=== PATIENT | male | born 1970 | race Caucasian/White ===

== ENCOUNTER 2016-12-01 13:45 | Emergency (ER) | payer OTHER ==
[2016-12-01 13:57] VITALS: O2SAT 98
[2016-12-01] MEDS ORDERED: Phenergan 25 MG INJ IM ONE (14:38)
[2016-12-01] MEDS ORDERED: Hydromorphone 1 mg/ml Ampule IM ONE (14:38)
--- NOTE | 2016-12-01 14:45 | ERPHSYRPT ---
- History of Present Illness Time Seen by Provider: 12/01/16 14:00 Source: patient Exam Limitations: clinical condition Patient Subjective Stated Complaint: abscess for 3 days Triage Nursing Assessment: states has had an abscess to post neck for 3 days. no fever. yellow draiange. large redness noted to mid post neck with yellow drainage noted. approx 4 cm redness with elevated center. Physician History: PATIENT WITH A HISTORY OF HYPERTENSION, CHRONIC PAIN SYNDROME COMPLAINS OF PAINFUL SWELLING OVER THE BACK OF HIS NECK X 3 DAYS ASSOCIATED WITH PURULENT DRAINAGE. DENIES FEVER. STATES HE HAS NO RELIEF FROM OXYCONTIN 15MG 4 TIMES DAILY. Timing/Duration: day(s) Quality: painful Severity: severe Location: neck Possible Causes: no cause identified Modifying Factors: Improves With: scratching Associated Symptoms: swelling/mass/lumps, other (DRAINAGE) Allergies/Adverse Reactions: No Known Drug Allergies Allergy (Unverified 12/01/16 13:57) Home Medications: Lisinopril 40 mg PO DAILY 12/20/15 [History] Oxycodone HCl 15 mg PO Q4HPRN PRN 12/01/16 [History] Hx Tetanus, Diphtheria Vaccination/Date Given: Yes Hx Influenza Vaccination/Date Given: No Hx Pneumococcal Vaccination/Date Given: No Immunizations Up to Date: Yes - Review of Systems Constitutional: No Symptoms Respiratory: No Symptoms Cardiac: No Symptoms Skin: Other (PAINFUL SWELLLING) - Past Medical History Pertinent Past Medical History: Yes Cardiac History: Hypertension Other Medical History: mrsa - Past Surgical History Past Surgical History: Yes Musculoskeletal: Orthopedic Surgery - Social History Smoking Status: Never smoker Exposure to second hand smoke: No Drug Use: none Patient Lives Alone: No - Nursing Vital Signs Nursing Vital Signs: Initial Vital Signs Temperature 98.8 F Temperature Source Oral Pulse Rate 87 Respiratory Rate 18 Blood Pressure [Right Arm] 183/112 Pain Intensity 10 - Physical Exam General Appearance: no apparent distress, alert Neck Exam: supple, other (THERE IS A CIRCULAR FLUCTUANCT SWELLING MID POST CERVICAL AREA AT BASE OF HAIR LINE WITH PURULENT PUS DRAINAGE 4CM X 3CM SURROUNDING ERYTHEMA) Respiratory Exam: normal breath sounds, lungs clear, No respiratory distress Cardiovascular Exam: regular rate/rhythm, normal heart sounds Gastrointestinal/Abdomen Exam: soft, mass, No tenderness Back Exam: normal inspection, normal range of motion, No CVA tenderness, No vertebral tenderness Extremity Exam: normal inspection, normal range of motion Neurologic Exam: alert, oriented x 3, cooperative, normal mood/affect, sensation nml, No motor deficits Skin Exam: normal color, warm, dry SpO2 Interpretation: normal SpO2: 98 Oxygen Delivery: Room Air Procedures - Incision and Drainage Site: POST CERVICAL Anesthesia: 2% Lidocaine cc's of anesthesia: 2 Blade Size: 11 I & D Procedure: other (1/4 INCH STRIP GAUZE PACKING) Results: large amount pus Ordered Tests: Medication Summary Discontinued Medications Generic Name Dose Route Start Last Admin Trade Name Elioq PRN Reason Stop Dose Admin Hydromorphone HCl 1 mg 12/01/16 14:38 Hydromorphone 1 Mg/Ml Ampule IM 12/01/16 14:39 STAT ONE Promethazine HCl 25 mg 12/01/16 14:38 Phenergan 25 Mg Inj IM 12/01/16 14:39 STAT ONE - Progress Progress Note: 12/01/16 14:51 PATIENT GIVEN DILAUDID 1MG/PHENERGAN 25MG IM Counseled pt/family regarding: diagnosis, need for follow-up - Departure Time of Disposition: 15:10 Departure Disposition: Home Clinical Impression: I/D POSTERIOR CERVICAL ABSCESS Condition: Stable Critical Care Time: No Additional Instructions: ANTIBIOTIC BACTRIM DS TWICE DAILY FOR 10 DAYS. APPLY COMPRESSIVE DRESSING OVER WOUND SITE 3-4 TIMES DAILY. CLEANSE AROUND THE WOUND WITH SOAP AND WATER 3-4 TIMES DAILY. FOLLOWUP WITH YOUR FAMILY PHYSICIAN FOR REMOVAL PACKING IN 4-5 DAYS. CONTINUE OXYCONTIN FOR PAIN. Prescriptions: Smz/Tmp Ds Tablet [Bactrim Ds Tablet] 1 udtab PO BID #20 tablet
[2016-12-01] MEDS ORDERED: Hydromorphone 1 mg/ml Ampule ONE (14:49)
[2016-12-01] MEDS ORDERED: Phenergan 25 MG INJ ONE (14:49)
[2016-12-01] MEDS ORDERED: Xylocaine-Mpf 2% 5 Ml Vial IJ ONE (14:53)
[2016-12-01 15:10] VITALS: BP 160/98; PULSE 73
== END 2016-12-01 15:10 | disposition home or self-care (01) ==
LOC: ED 13:45
PROC: 0H94XZZ Drainage of Neck Skin, External Approach (ICD-10-PCS; principal; 2016-12-01)
DX: L02.11 Cutaneous abscess of neck (principal); I10 Essential (primary) hypertension; G89.29 Other chronic pain
CPT/HCPCS: 10160; 87070; 87077; 87186; 96372; 99284; J1170; J2550